=== PATIENT | female | born 1995 | race African-American/Black ===

== ENCOUNTER 2021-04-23 17:48 | Emergency (ER) | payer SELFPAY ==
[~2021-04-23] VITALS: Ht 175.3 cm; Wt 97.5 kg
[2021-04-23] MEDS ORDERED: ACETAMINOPHEN 325 MG TAB PO ONE (18:30)
[2021-04-23] MEDS ORDERED: KETOROLAC TROMETHAMINE 30 MG/ML VIAL IM STA (18:35)
== END 2021-04-23 20:00 | disposition home or self-care (01) ==
LOC: ER 18:39
DX: U07.1 COVID-19 (principal)
CPT/HCPCS: 99282; U0002